=== PATIENT | male | born 1995 | race Hispanic/Latino ===

== ENCOUNTER 2024-06-17 03:46 | Emergency (ER) | payer OTHER ==
[~2024-06-17] VITALS: Ht 175.3 cm; Wt 106.0 kg
[2024-06-17] MEDS ORDERED: SUCRALFATE 1 GM TAB PO ONE (04:00)
[2024-06-17] MEDS ORDERED: LIDOCAINE & ANTACID 35 ML BTL PO ONE (04:00)
[2024-06-17] MEDS ORDERED: METOCLOPRAMIDE HCL 10 MG/2 ML SDV IV ONE (04:00)
[2024-06-17] MEDS ORDERED: PANTOPRAZOLE SODIUM 40 MG/10 ML VIAL IV ONE (04:00)
[2024-06-17] MEDS ORDERED: diphenhydrAMINE HCL 50 MG/ML VIAL IV ONE (04:00)
[2024-06-17 04:06] LABS: BASOPHILS 0.3 % (0-2); EOSINOPHILS 0.9 % (0-6); HEMATOCRIT 45.4 % (35.0-50.0); HEMOGLOBIN 15.9 g/dL (12.0-18.0); LYMPHOCYTES 36.1 % (24-44); MCV 82.9 fl (81-99); MONOCYTES 8.8 % (0-12); NEUTROPHILS 53.9 % (39-80); PLATELET COUNT 210 K/uL (140-440); RBC 5.48 M/ul (4.3-5.7); RDW 13.7 (10.5-15.0)
[2024-06-17 04:22] LABS: ALBUMIN 4.1 g/dL (3.4-5.0); ALBUMIN/GLOBULIN RATIO 1.11 (1.1-2.4); ANION GAP 10.8 (7-21); BUN/CREATININE RATIO 17.02 (6.0-28.6); CALCIUM 9.2 mg/dL (8.5-10.1); CREATININE, SERUM 0.94 mg/dL (0.70-1.30); MAGNESIUM 1.5 mg/dL (1.8-2.4); POTASSIUM 3.8 mmol/L (3.5-5.1); PROTEIN, TOTAL 7.8 g/dL (6.4-8.2)
[2024-06-17] MEDS ORDERED: PROMETHAZINE HC25 M1 PO (04:43)
[2024-06-17] MEDS ORDERED: CARAFATE1 GM PO (04:43)
[2024-06-17] MEDS ORDERED: PROTONIX40 MG PO (04:43)
[2024-06-17 04:47] LABS: ABO O; ANTIBODY SCREEN NEGATIVE; RH POSITIVE
[2024-06-17 04:51] VITALS: BP 118/71
== END 2024-06-17 04:54 | disposition home or self-care (01) ==
LOC: ED 03:46
PROVIDERS: Family Medicine
DX: R11.2 Nausea with vomiting, unspecified (principal)
CPT/HCPCS: 36415; 80053; 83690; 83735; 85025; 86850; 86900; 86901; 96374; 96375; 99284-25; J1200; J2470; J2765